=== PATIENT | female | born 1960 | race Caucasian/White ===

== ENCOUNTER 2019-02-07 06:00 | Outpatient (RCR) | payer OTHER, SELFPAY | END 2019-03-09 00:01 | LOC: SPT 06:00 | PROVIDERS: Family Provider Electrodiagnostic Medicine; Visit Provider Electrodiagnostic Medicine | DX: M25.512 Pain in left shoulder (principal); M75.42 Impingement syndrome of left shoulder; M75.102 Unspecified rotator cuff tear or rupture of left shoulder, not specified as traumatic | CPT/HCPCS: 97530 ==

== ENCOUNTER 2019-04-30 12:47 | Outpatient (CLI) | payer BC, SELFPAY ==
--- NOTE | 2019-04-30 13:10 | MM_ITS ---
WS: [id number] BILATERAL DIGITAL SCREENING MAMMOGRAPHY WITH CAD CLINICAL INFORMATION: SCREENING HISTORY: Screening mammogram. Left breast soreness COMPARISON: April 09, 2018 TECHNIQUE: Bilateral CC and MLO views. FINDINGS: The breasts are composed of heterogeneous fibroglandular density tissue, which can limit the detectio n of small underlying mass lesions. No suspicious mass, asymmetry, calcifications, or architectural d istortion. No evidence of malignancy. MM/[id number] IMPRESSION: BI-RADS: 1-Negative FOLLOW UP: 1 Year Follow-up Recommend return to annual screening mammography.
== END 2019-04-30 12:48 | disposition home or self-care (01) ==
LOC: RADSHAW 12:53
PROVIDERS: Family Provider Electrodiagnostic Medicine; PCP Electrodiagnostic Medicine; Visit Provider Obstetrics & Gynecology
DX: Z12.31 Encounter for screening mammogram for malignant neoplasm of breast (principal)
CPT/HCPCS: 77067

== ENCOUNTER 2020-08-11 07:59 | Outpatient (CLI) | payer BC, SELFPAY ==
--- NOTE | 2020-08-11 08:04 | MM_ITS ---
WS: [id number] SCREENING DIGITAL MAMMOGRAM WITH CAD HISTORY: SCREENING COMPARISON: 12/29/2019 and 04/09/2018 Bilateral CC and MLO views submitted. Computer aided detection analyzed. Breast composition: The breasts are heterogeneously dense, which may obscure small masses. No suspici ous masses, microcalcifications or architectural distortion. MM/[id number] IMPRESSION: BI-RADS: 1-Negative FOLLOW UP: 1 Year Follow-up
== END 2020-08-11 08:00 | disposition home or self-care (01) ==
LOC: RADSHAW 08:03
PROVIDERS: PCP Electrodiagnostic Medicine; Visit Provider Obstetrics & Gynecology
DX: Z12.31 Encounter for screening mammogram for malignant neoplasm of breast (principal)
CPT/HCPCS: 77067

== ENCOUNTER 2020-09-30 15:37 | Inpatient (IN) | payer BC, SELFPAY ==
[2020-09-30] VITALS (17 sets, daily range): BP systolic 93–149; BP diastolic 56–85; PULSE 90–162; RESP 17–34; TEMP 38; O2SAT 87–95; BMI 26.9
--- NOTE | 2020-09-30 17:25 | XRR_ITS ---
PROCEDURE INFORMATION: Exam: XR Chest Exam date and time: 09/30/2020 5:25 PM Age: 59 years old Clinical indication: Cough; Additional info: Hypoxia TECHNIQUE: Imaging protocol: XR of the chest. Views: 1 view. COMPARISON: CR Chest 1 [place] [id number] 10/20/2017 2:10 PM FINDINGS: Lungs: There is mild patchy opacification in the mid and inferior bilateral lungs. No dominant lung mass. Pleural spaces: Unremarkable. No pleural effusion. No pneumothorax. Heart/Mediastinum: Unremarkable. No cardiomegaly. Bones/joints: Unremarkable. XR/XR chest 1V portable [id number] IMPRESSION: There is mild patchy opacification in the bilateral lungs suggestive of pneumonia.Clinical correlation is advised.
--- NOTE | 2020-09-30 17:25 | ECG_ITS ---
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 Measurements Intervals [place] Rate: 155 P: GA: QRS: 22 QRSD: 82 T: 22 QT: 212 QTc: 340 Interpretive Statements ATRIAL FIBRILLATION WITH RAPID VENTRICULAR RESPONSE NONSPECIFIC ST & T-WAVE ABNORMALITY Compared to ECG 10/20/2017 17:08:52 T-wave abnormality now present Sinus bradycardia no longer present Electronically Signed On 10-01-2020 18:19:43 CDT by Antonina Jaime M.D. [id number] f
--- NOTE | 2020-09-30 17:59 | W.ED.COVID ---
HPI - COVID General: Chief Complaint: COVID symptoms Stated Complaint: COVID+ Time Seen by Provider: 09/30/20 17:59 Triage information: Has fever, cough or shortness of breath. No known COVID + exposure last 14 days COVID Results: SARS-CoV-2 RNA (RT-PCR) Pending 09/30/20 18:11 09/30/20 Course Vital Signs: Vital signs: Vital Signs Temperature 100.4 F H 09/30/20 17:05 Pulse Rate 90 09/30/20 17:05 Respiratory Rate 19 H 09/30/20 17:05 Blood Pressure 116/73 09/30/20 17:05 Pulse Oximetry 93 09/30/20 17:26 MDM - COVID Lab Data: Labs: Lab Results 09/30/20 Range/Units 18:07 Specimen Type Arterial Sample Site Radial, left ABG pH 7.51 H (7.35-7.45) ABG pCO2 35.1 (35-45) mmHg ABG pO2 64.2 L (80.0-100.0) mmH g ABG HCO3 27.6 H (22-26) mmol/L ABG Base Excess 4.6 H (-2.0-2.0) mmol/ L Reid Test Pos Hematocrit 45.3 (37-47) % O2 Delivery Device Nc O2 Liters/Min 3.0 % River Tester ID Adrielsameer COVID Results: SARS-CoV-2 RNA (RT-PCR) Pending 09/30/20 18:11 09/30/20 Discharge Plan Discharge Prescriptions: No Action azithromycin 250 mg Tablet See Rx Instructions .ROUTE .COMPLEX RF: 0 prednisone 5 mg Tablet See Rx Instructions .ROUTE .COMPLEX RF: 0 Plaquenil 200 mg Tablet 200 mg PO BID RF: 0 Coding Level of Care Code ED All Terrain Vehicle Racer for Chg Fwshruthi
--- NOTE | 2020-09-30 18:02 | PC.PHAR ---
PT STATES SHE JUST GOT MEDICATION TODAY FOR COVID. SHE DOESN'T KNOW THE DOSAGE OR DIRECTIONS AND HER PHARMACY IS CLOSED AT THIS TIME SO I CANNOT VERIFY THEM. SHE HAS PLAQUENIL, AZITHROMYCIN, AND PREDNISONE. PT STATES SHE TOOK ALL OF THESE TODAY.
[2020-09-30 18:17] LABS: ABG PCO2 35.1 mmHg (35-45); ABG PH Result 7.51 (7.35-7.45); Arterial Blood Gas Hematocrit 45.3 % (37-47); Base Excess ABG 4.6 mmol/L (-2.0-2.0); Blood Gas Allen Test Pos; Blood Gas Sample Type Arterial; HCO3 ABG 27.6 mmol/L (22-26); PO2 ABG 64.2 mmHg (80.0-100.0)
[2020-09-30 18:18] LABS: Blood Gas Operator Identificat BROMA; Blood Gas Sample Site Radial, left; Oxygen Device NC
[2020-09-30 18:28] LABS: Basophils % 0.2 %; Hematocrit 47.4 % (37.0-47.0); Hemoglobin 14.9 g/dL (11.5-15.3); Lymphocytes # 0.7 10^3/uL (0.8-4.8); Lymphocytes % 12.9 %; Mean Corpuscular HGB Conc 31.4 g/dL (30.0-36.0); Mean Corpuscular Hemoglobin 28.2 pg (28.0-34.0); Mean Corpuscular Volume 89.8 fL (81-99); Mean Platelet Volume 12.7 fL (7.4-10.4); Monocytes # 0.1 10^3/uL (0.2-0.9); Monocytes % 1.9 %; Neutrophils # 4.41 10^3/uL (1.8-7.7); Neutrophils % 84.6 %; Nucleated Red Blood Cells % 0 %; Platelet Count 147 10^3/cmm (130-400); Red Blood Count 5.28 10^6/uL (4.1-5.3); White Blood Count 5.2 10^3/uL (4.0-10.0)
[2020-09-30] MEDS: sodium chloride 0.9% 1,000 ML 999 ML IV (18:39)
[2020-09-30 18:52] LABS: D Dimer 0.59 ug/mIFEU (0-0.59)
[2020-09-30 18:56] LABS: Lactic Sepsis W/Reflex 1.3 mmol/L (0.5-2.2)
[2020-09-30 18:59] LABS: Alanine Aminotransferase 23 U/L (0-33); Albumin Level 4.1 g/dL (3.5-5.2); Alkaline Phosphatase 69 IU/L (35-105); Anion Gap 15.9 (5-19); Aspartate Amino Transferase 36 U/L (0-32); Blood Urea Nitrogen 12 mg/dL (6-20); C Reactive Protein 21.5 mg/L (0.0-4.9); Calcium 8.4 mg/dL (8.5-10.5); Carbon Dioxide 28 mmol/L (22-29); Chloride 94 mmol/L (98-107); Globulin 3.3 g/dL (1.3-4.6); Glomerular Filtration Rate 73.7 mL/min (90-130); Glucose 132 mg/dL (65-115); Lactate Dehydrogenase 408 U/L (135-214); Osmolality Calculated 280 mOsm/kg (285-295); Potassium 3.9 mmol/L (3.5-5.1); Sodium 134 mmol/L (136-145); Total Bilirubin 0.3 mg/dL (0.15-1.2); Total Protein 7.4 g/dL (6.6-8.7)
[2020-09-30 19:05] LABS: Procalcitonin 0.09 ng/mL (0-0.5)
[2020-09-30 19:26] LABS: Slide Review Slide Review Perform
--- NOTE | 2020-09-30 19:37 | W.ED.COVID ---
HPI - COVID General: Chief Complaint: COVID symptoms Stated Complaint: COVID+ Time Seen by Provider: 09/30/20 17:59 Source: patient and RN notes reviewed Mode of arrival: ambulatory Limitations: no limitations Triage information: Has fever, cough or shortness of breath. No known COVID + exposure last 14 days History of Present Illness: HPI Narrative: Patient is a 59-year-old female who has been feeling unwell for 7 days. Symptoms include cough, fever, body aches, generalized weakness. 5 days ago she did a home Covid test and she tested positive. She has had gradually declining functional status as well as worsening shortness of breath. She therefore presented to the emergency department to be evaluated for these. In the emergency department she was noted to be hypoxic with oxygen saturation about 87% on room air. MD complaint: known COVID positive Prior covid testing: yes, results known COVID 19 common symptoms: positive fever(s), chills, cough, dyspnea, fatigue, body aches, headache(s), nasal congestion, nausea and diarrhea; negative loss of sense of smell and/or taste, throat pain or vomiting COVID 19 other sytmptoms: positive requiring oxygen and lethargy; negative chest pressure, chest pain, pleuritic pain, respiratory distress, cyanosis, confusion, new neurological complaints or other concerning symptoms Onset (ago): day(s) (7) Severity: severe COVID Results: SARS-CoV-2 Antigen (Rapid) Positive (Negative) H 09/30/20 18:15 09/30/20 SARS-CoV-2 RNA (RT-PCR) Pending 09/30/20 18:11 09/30/20 Review of Systems General: Reports: 10 or more systems reviewed and unremarkable except in HPI and below Const: Reports: fever(s), chills, body aches and fatigue ENMT: Reports: nasal congestion; Denies: throat pain Card: Denies: chest pain Resp: Reports: dyspnea GI: Reports: nausea and diarrhea; Denies: vomiting Neuro: Reports: headache(s); Denies: confusion Physical Exam Const: COMMON NORMALS: no acute distress, average body habitus, patient oriented x3, no limitations, healthy appearing, alert and well nourished HENMT: COMMON NORMALS: normocephalic, atraumatic and moist oral mucous membranes HEAD & SCALP: normocephalic and atraumatic Neck/C-Spine: COMMON NORMALS: no meningeal signs and no JVD Resp: COMMON NORMALS: normal respiratory effort, No retractions, No use of accessory muscles, clear to auscultation bilaterally and percussion normal AUSCULTATION: clear to auscultation bilaterally PERCUSSION: percussion normal Cardio: COMMON NORMALS: no JVD, S1 normal heart sound present, S2 normal heart sound present, No gallops present (Cardio), No clicks present (Cardio), No murmurs present (Cardio), No rub (Cardio) and Peripheral pulses 2+ throughout RATE: tachycardic RHYTHM: abnormal rhythm irregularly irregular HEART SOUNDS: S1 normal heart sound present and S2 normal heart sound present PERIPHERAL PULSES: Peripheral pulses 2+ throughout GI: COMMON NORMALS: Normal to inspection, nondistended, normoactive bowel sounds present, Soft to palpation, non-tender, No hepatosplenomegaly present, no masses and no bruits PALPATION: Yes Soft to palpation and Yes No hepatosplenomegaly present Extremity: COMMON NORMALS: normal to inspection, full ROM, capillary refill normal, no calf tenderness and no pedal edema Neuro: COMMON NORMALS: patient oriented x3 SENSORIUM/ORIENTATION: Yes alert MENINGEAL SIGNS: Yes no meningeal signs Skin: COMMON NORMALS: no rashes or lesions noted, no wounds, turgor normal, no jaundice, no petechiae and no mottling GENERAL SKIN EXAM: no rashes or lesions noted and turgor normal Course Consultations: Consultation #1: Discussed the patient with Dr. Queen, hospitalist and he can accepted patient to his service. Time: 20:39 Vital Signs: Vital signs: Vital Signs Temperature 100.4 F H 09/30/20 17:05 Pulse Rate 117 H 09/30/20 22:15 Respiratory Rate 26 H 09/30/20 22:15 Blood Pressure 105/74 09/30/20 22:15 Pulse Oximetry 93 09/30/20 22:15 MDM - COVID MDM Narrative: Medical decision making narrative: 59-year-old female patient who has symptoms are started 7 days ago. Her symptoms are Covid-like symptoms and include fever, cough, body aches, diarrhea, nausea. She did a home test for Covid and she tested positive. In the emergency department today she was noted to be hypoxic, however of note she was in A. fib with RVR with a heart rate as high as 170. She required intravenous diltiazem as well as continuous infusion of diltiazem to get her heart rate control. Because of the A. fib with RVR requiring continuous infusion of diltiazem as well as the hypoxia from the COVID-19 she is admitted to the hospital for further evaluation and management. Medical Records: Attestation: I reviewed the patient's medical records. Lab Data: Attestation: I reviewed the patient's lab results. Labs: Lab Results 09/30/20 09/30/20 09/30/20 Range/Units 18:07 18:15 18:15 WBC 5.2 (4.0-10.0) 10^3/ uL RBC 5.28 (4.1-5.3) 10^6/u L Hgb 14.9 (11.5-15.3) g/dL Hct 47.4 H (37.0-47.0) % MCV 89.8 (81-99) fL MCH 28.2 (28.0-34.0) pg MCHC 31.4 (30.0-36.0) g/dL RDW 13.0 (12.1-15.1) % Plt Count 147 (130-400) 10^3/c mm MPV 12.7 H (7.4-10.4) fL Neut % (Auto) 84.6 % Lymph % (Auto) 12.9 % [place] % (Auto) 1.9 % Eos % (Auto) 0.0 % Baso % (Auto) 0.2 % Neut # (Auto) 4.41 (1.8-7.7) 10^3/u L Lymph # (Auto) 0.7 L (0.8-4.8) 10^3/u L [place] # (Auto) 0.1 L (0.2-0.9) 10^3/u L Eos # (Auto) 0.0 (0.0-0.8) 10^3/u L Baso # (Auto) 0.0 (0.0-0.1) 10^3/u L Nucleated RBC % (a uto) 0 % Nucleated RBCs # 0.0 /100WBC D-Dimer 0.59 (0-0.59) ug/mIFE U Specimen Type Arterial Sample Site Radial, left ABG pH 7.51 H (7.35-7.45) ABG pCO2 35.1 (35-45) mmHg ABG pO2 64.2 L (80.0-100.0) mmH g ABG HCO3 27.6 H (22-26) mmol/L ABG Base Excess 4.6 H (-2.0-2.0) mmol/ L Reid Test Pos Hematocrit 45.3 (37-47) % O2 Delivery Device Nc O2 Liters/Min 3.0 % Ambulatory Technologist ID Broma Sodium (136-145) mmol/L Potassium (3.5-5.1) mmol/L Chloride (98-107) mmol/L Carbon Dioxide (22-29) mmol/L Anion Gap (5-19) BUN (6-20) mg/dL Creatinine (0.5-0.9) mg/dL GFR Calculation (90-130) mL/min Glucose (65-115) mg/dL Calculated Osmolal ity (285-295) mOsm/k g Lactic Acid (0.5-2.2) mmol/L Calcium (8.5-10.5) mg/dL Total Bilirubin (0.15-1.2) mg/dL AST (0-32) U/L ALT (0-33) U/L Alkaline Phosphata se (35-105) IU/L Lactate Dehydrogen ase (135-214) U/L C-Reactive Protein (0.0-4.9) mg/L Total Protein (6.6-8.7) g/dL Albumin (3.5-5.2) g/dL Globulin (1.3-4.6) g/dL Procalcitonin (0-0.5) ng/mL SARS-CoV-2 Ag (Rap id) (Negative) 09/30/20 09/30/20 09/30/20 Range/Units 18:15 18:15 18:15 WBC (4.0-10.0) 10^3/ uL RBC (4.1-5.3) 10^6/u L Hgb (11.5-15.3) g/dL Hct (37.0-47.0) % MCV (81-99) fL MCH (28.0-34.0) pg MCHC (30.0-36.0) g/dL RDW (12.1-15.1) % Plt Count (130-400) 10^3/c mm MPV (7.4-10.4) fL Neut % (Auto) % Lymph % (Auto) % [place] % (Auto) % Eos % (Auto) % Baso % (Auto) % Neut # (Auto) (1.8-7.7) 10^3/u L Lymph # (Auto) (0.8-4.8) 10^3/u L [place] # (Auto) (0.2-0.9) 10^3/u L Eos # (Auto) (0.0-0.8) 10^3/u L Baso # (Auto) (0.0-0.1) 10^3/u L Nucleated RBC % (a uto) % Nucleated RBCs # /100WBC D-Dimer (0-0.59) ug/mIFE U Specimen Type Sample Site ABG pH (7.35-7.45) ABG pCO2 (35-45) mmHg ABG pO2 (80.0-100.0) mmH g ABG HCO3 (22-26) mmol/L ABG Base Excess (-2.0-2.0) mmol/ L Reid Test Hematocrit (37-47) % O2 Delivery Device O2 Liters/Min % Ambulatory Technologist ID Sodium 134 L (136-145) mmol/L Potassium 3.9 (3.5-5.1) mmol/L Chloride 94 L (98-107) mmol/L Carbon Dioxide 28 (22-29) mmol/L Anion Gap 15.9 (5-19) BUN 12 (6-20) mg/dL Creatinine 0.8 (0.5-0.9) mg/dL GFR Calculation 73.7 L (90-130) mL/min Glucose 132 H (65-115) mg/dL Calculated Osmolal ity 280 L (285-295) mOsm/k g Lactic Acid 1.3 (0.5-2.2) mmol/L Calcium 8.4 L (8.5-10.5) mg/dL Total Bilirubin 0.3 (0.15-1.2) mg/dL AST 36 H (0-32) U/L ALT 23 (0-33) U/L Alkaline Phosphata se 69 (35-105) IU/L Lactate Dehydrogen ase 408 H (135-214) U/L C-Reactive Protein 21.5 H (0.0-4.9) mg/L Total Protein 7.4 (6.6-8.7) g/dL Albumin 4.1 (3.5-5.2) g/dL Globulin 3.3 (1.3-4.6) g/dL Procalcitonin 0.09 (0-0.5) ng/mL SARS-CoV-2 Ag (Rap id) Positive H (Negative) Imaging Data: CXR: Attestation: I personally reviewed and interpreted this imaging study as follows: Radiologist's impression: [address] [id number] ReportSigned Patient: Zoie Arnold AUnit #: [id number]: 1960cct#:[id number]/Sex: 59 / FADM Date: 09/30/20Loc: ERRoom/Bed:Attending Dr: Ordering Provider/Ordering MD: Domenic Johnson DO Date of Service: 09/30/20 Procedure(s): XR chest 1V portable [id number] Accession Number(s): [id number] Report Number: [id number] PROCEDURE INFORMATION: Exam: XR Chest Exam date and time: 09/30/2020 5:25 PM Age: 59 years old Clinical indication: Cough; Additional info: Hypoxia TECHNIQUE: Imaging protocol: XR of the chest. Views: 1 view. COMPARISON: CR Chest 1 [place] [id number] 10/20/2017 2:10 PM FINDINGS: Lungs: There is mild patchy opacification in the mid and inferior bilateral lungs. No dominant lung mass. Pleural spaces: Unremarkable. No pleural effusion. No pneumothorax. Heart/Mediastinum: Unremarkable. No cardiomegaly. Bones/joints: Unremarkable. XR/XR chest 1V portable [id number] IMPRESSION: There is mild patchy opacification in the bilateral lungs suggestive of pneumonia.Clinical correlation is advised. Dictated By:Carrie Mcihaud MDSigned By:Carrie Michaudigned Date/Time:09/30/201934DD/ 32 EKG Data: EKG 1: Attestation: I personally reviewed and interpreted this EKG as follows: EKG interpretation date: 09/30/20 EKG interpretation time: 18:32 Prior EKG tracings: not available for review Interpretation: Atrial fibrillation with rapid ventricular response. Heart rate [address] changes COVID Results: SARS-CoV-2 Antigen (Rapid) Positive (Negative) H 09/30/20 18:15 09/30/20 SARS-CoV-2 RNA (RT-PCR) Pending 09/30/20 18:11 09/30/20 Discharge Plan Discharge Patient Disposition: Admitted As Inpatient Admit Provider: Mari Queen Clinical Impression: Atrial fibrillation with rapid ventricular response, Pneumonia due to COVID-19 virus, Hypoxia Condition: Stable Coding Level of Care Code ED Montessori Lead Teacher for Michele Mathis
[2020-09-30 20:31] LABS: SARS Covid-2 Antigen Positive (Negative)
--- NOTE | 2020-09-30 20:51 | PM.HP ---
Providers/Chief Complaint Primary Care Provider: Reji Woody DO Chief Complaint: COVID+ History of Present Illness 59-year-old the female presented to the hospital respiratory distress. This was associated with generalized weakness, nausea, fever, chills, and palpitations. Initial vital signs showed a temperature of a 100.4?, Blood pressure 116/73, heart rate of 90, respiratory rate of 19 with oxygen saturation of 87% on room air. Laboratory workup on arrival showed a WBC 5.2, hemoglobin of 14.9, hematocrit of 47.4 and a platelet count of 147. D-dimer of 0.59. Arterial blood gases showed a pH of 7.51, pCO2 35.1, PO2 of 64.2 and a bicarb 27.6. Sodium 134, potassium 3.9, chloride 94, bicarb 28, BUN 12 and creatinine of 0.8. Lactic acid of 1.3. AST of 36, ALT of 23, alkaline phosphatase of 69. LDH was 4 8. C-reactive protein of 21.5. Interleukin 6 was checked however pending. Chest x-ray showed mild patchy opacifications in bilateral lung suggestive of pneumonia. Patient was started on remdesivir 200 mg IV x 1. While in emergency room patient was found to have atrial fibrillation with rapid ventricular response. No prior history of AFib was noted. Patient was started on Cardizem drip. Review of Systems General: Reports: 10 or more systems reviewed and unremarkable except in HPI and below Medications/Allergies Home Medications Medication Instructions Recorded Confirmed Last Taken Type azithromycin See Rx Instructions .ROUTE .COMPLEX 09/30/20 09/30/20 09/30/20 History hydroxychloroquine [Plaquenil] 200 mg PO BID 09/30/20 09/30/20 09/30/20 History prednisone See Rx Instructions .ROUTE .COMPLEX 09/30/20 09/30/20 09/30/20 History Allergies Allergy/AdvReac Type Severity Reaction Status Date / Time No Known Allergies Allergy Verified 09/30/20 17:05 Vitals/I&O/Wt Last Vital Signs Temp 100.4 F H 09/30/20 17:05 Pulse 135 H 09/30/20 20:30 Resp 33 H 09/30/20 20:30 BP 112/65 09/30/20 20:30 Pulse Ox 93 09/30/20 20:30 09/30/20 09/30/2009/30/21 06:59 14:59 22:59 Intake Total 3.333 / 3.333 Balance 3.333 / 3.333 Weight last 48 hrs Weight 80.286 kg Physical Exam Narrative: EXAM NARRATIVE: General ; alert, awake oriented x 3 HEENT : EOMI CVS : Irregularly irregular Chest : CTABL Abd: soft, NT, ND Ext; No edema Data : 10/01/20 03:42 10/01/20 03:42 Micro: Microbiology 09/30/20 19:10 Blood Culture - Preliminary Blood SPECIMEN COLLECTED 09/30/20 18:15 Blood Culture - Preliminary Blood SPECIMEN COLLECTED A&P Assessment and plan (1) Pneumonia due to COVID-19 virus: Started on Decadron 6 mg IV daily times 10 days Remdesivir 200Mg x1 - 100 mg IV daily x4 days Procalcitonin, D-dimer negative Interleukin 6 ordered-pending Supplemental oxygen as needed COVID-19 labs in a.m. Contact/droplet precautions Tylenol p.r.n. for fever Avoid NSAIDs Status: Acute (2) Atrial fibrillation with rapid ventricular response: Newly diagnosed Continue Cardizem drip titrate to keep heart rate less than 110 Lovenox 1 milligram/kg b.i.d. Once heart rate improves will obtain echocardiogram Monitor in cardiac telemetry Avoid Caffeine TSH in a.m. Status: Acute (3) DVT prophylaxis: Lovenox 80 mg subQ b.i.d. Status: Acute Attestations Medical Necessity Statement*: Patient required admission for management of COVID-19 pneumonia and atrial fibrillation with rapid ventricular response requiring IV Cardizem. Anticipate over 2 midnights stay in hospital for evaluation and treat Time Spent in Patient Care: Greater than 35 minutes (>than 50% of time spent in counselling and/or direct pt care on unit). Coding Level of Care Code Acute Stereo Operator for Michele Fwd Diagnoses Pneumonia due to COVID-19 virus U07.1; J12.82 Atrial fibrillation with rapid ventricular response I48.91 DVT prophylaxis Z29.9
--- NOTE | 2020-09-30 21:30 | P.HP_ITS ---
Providers/Chief Complaint Admitting Physician: Mari Queen Primary Care Provider: Reji Woody DO Chief Complaint: COVID+ History of Present Illness Zoie Arnold is a 59 year old female Medications/Allergies Home Medications Medication Instructions Recorded Confirmed Last Taken Type azithromycin See Rx Instructions .ROUTE .COMPLEX 09/30/20 09/30/20 09/30/20 History hydroxychloroquine [Plaquenil] 200 mg PO BID 09/30/20 09/30/20 09/30/20 History prednisone See Rx Instructions .ROUTE .COMPLEX 09/30/20 09/30/20 09/30/20 History Allergies Allergy/AdvReac Type Severity Reaction Status Date / Time No Known Allergies Allergy Verified 09/30/20 17:05 Vitals/I&O/Wt Last Vital Signs Temp 100.4 F H 09/30/20 17:05 Pulse 135 H 09/30/20 20:30 Resp 33 H 09/30/20 20:30 BP 112/65 09/30/20 20:30 Pulse Ox 93 09/30/20 20:30 09/30/20 09/30/20 09/30/20 06:59 14:59 22:59 Intake Total 3.333 / 3.333 Balance 3.333 / 3.333 Weight last 48 hrs Weight 80.286 kg Data : 09/30/20 18:15 09/30/20 18:15 Micro: Microbiology 09/30/20 19:10 Blood Culture - Preliminary Blood SPECIMEN COLLECTED 09/30/20 18:15 Blood Culture - Preliminary Blood SPECIMEN COLLECTED Coding Level of Care Code Acute Voyage Management System Operator for Michele Mathis
[2020-09-30] MEDS: ondansetron 2 mg/ML SDV 2 mL 4 MG IVP (21:51)
[2020-09-30] MEDS: remdesivir 200 MG in sodium chloride 0.9% (100 ml) 100 ML 100 MG IV (22:10)
[2020-10-01] VITALS (39 sets, daily range): BP systolic 93–131; BP diastolic 44–85; PULSE 70–140; RESP 18–24; TEMP 36.6–37.7; O2SAT 87–95
[2020-10-01] MEDS: dexamethasone 4 mg/mL INJ 6 MG IVP ×2 (00:21→20:53)
--- NOTE | 2020-10-01 00:33 | PC.NURSE ---
Patient heart rate 80 to 90s. Decreased cardizem to 5ml/hr.
[2020-10-01 03:51] LABS: Basophils % 0.2 %; Hematocrit 45.3 % (37.0-47.0); Hemoglobin 14.2 g/dL (11.5-15.3); Lymphocytes # 1.1 10^3/uL (0.8-4.8); Lymphocytes % 17.1 %; Mean Corpuscular HGB Conc 31.3 g/dL (30.0-36.0); Mean Corpuscular Hemoglobin 27.8 pg (28.0-34.0); Mean Corpuscular Volume 88.8 fL (81-99); Mean Platelet Volume 12.1 fL (7.4-10.4); Monocytes # 0.2 10^3/uL (0.2-0.9); Monocytes % 2.5 %; Neutrophils # 5.07 10^3/uL (1.8-7.7); Neutrophils % 79.7 %; Nucleated Red Blood Cells % 0 %; Platelet Count 147 10^3/cmm (130-400); White Blood Count 6.4 10^3/uL (4.0-10.0)
[2020-10-01 04:12] LABS: D Dimer 0.81 ug/mIFEU (0-0.59)
[2020-10-01 04:22] LABS: Alanine Aminotransferase 20 U/L (0-33); Albumin Level 3.6 g/dL (3.5-5.2); Alkaline Phosphatase 63 IU/L (35-105); Anion Gap 12.9 (5-19); Aspartate Amino Transferase 28 U/L (0-32); Blood Urea Nitrogen 10 mg/dL (6-20); C Reactive Protein 19.5 mg/L (0.0-4.9); Carbon Dioxide 26 mmol/L (22-29); Chloride 99 mmol/L (98-107); Globulin 2.8 g/dL (1.3-4.6); Glomerular Filtration Rate 102.7 mL/min (90-130); Glucose 113 mg/dL (65-115); Osmolality Calculated 278 mOsm/kg (285-295); Potassium 3.9 mmol/L (3.5-5.1); Sodium 134 mmol/L (136-145); Total Bilirubin 0.3 mg/dL (0.15-1.2); Total Protein 6.4 g/dL (6.6-8.7)
[2020-10-01 04:30] LABS: Procalcitonin 0.08 ng/mL (0-0.5)
[2020-10-01 04:42] LABS: Ferritin 398 ng/mL (15-150)
--- NOTE | 2020-10-01 04:53 | PC.NURSE ---
Heart rate upper 90s to 110s. Heart does increase to 120s with exertion. Increased Cardizem drip to 10ml/hr
[2020-10-01] MEDS: dilTIAZem 30 mg Tablet PO ×3 (08:55→20:53)
[2020-10-01] MEDS: pantoprazole DR 40 mg Tablet PO (08:55)
[2020-10-01] MEDS: remdesivir 100 MG in sodium chloride 0.9% (100 ml) 100 ML IV (17:41)
--- NOTE | 2020-10-01 19:32 | PC.NURSE ---
Received bedside report from AUDRA Chu. Patient resting in bed watching tv. Patient report improved stomach upset. Discussed Cardizem dosing. Patient verbalized understanding.
--- NOTE | 2020-10-01 22:22 | PM.PN ---
Subjective Subjective: Interval history: She is doing a little bit better. Still having diarrhea. No vomiting. Comfortable at current oxygen level. States discussed about starting aspirin for prophylaxis from CVA from atrial fibrillation. Agreeable to start. Understands risk of bleeding. Vitals/I&O/Wt Last Vital Signs Temp 98.2 F 10/01/20 19:25 Pulse 78 10/01/20 22:01 Resp 18 10/01/20 22:01 BP 103/69 10/01/20 19:25 Pulse Ox 93 10/01/20 22:01 10/01/20 10/01/20 10/01/20 06:59 14:59 22:59 Intake Total 756.334 / 1759.667 662 / 662 757.167 / 1419.167 Output Total 1100 / 1100 400 / 1500 Balance 756.334 / 1759.667 -438 / -438 357.167 / -80.833 Weight last 48 hrs Weight 78.834 kg Weight 80.286 kg Data : 10/01/20 03:42 10/01/20 03:42 Micro: Microbiology 09/30/20 19:10 Blood Culture - Preliminary Blood NEGATIVE TO DATE 09/30/20 18:15 Blood Culture - Preliminary Blood NEGATIVE TO DATE A&P Assessment and plan (1) Pneumonia due to COVID-19 virus: Severe COVID-19 pneumonia, continue remdesivir, Decadron. Albuterol as needed. We will add Tessalon Perles. Continue oxygen support, wean off as tolerating. Lovenox VTE prophylaxis. Status: Acute (2) Atrial fibrillation with rapid ventricular response: Started on 30 mg every 6 Cardizem this morning. Still requiring 5 mg/h Cardizem drip. Increase oral Cardizem to 60 mg 3 times daily. Monitor blood pressure. Magnesium checked and is good. Potassium acceptable at 3.9. Suspect A. fib with RVR related to acute viral illness, severe COVID-19, hypoxia. TSH Once heart rate improves will obtain echocardiogram Monitor in cardiac telemetry Status: Acute (3) DVT prophylaxis: Lovenox Status: Acute Attestations Medical Necessity Statement*: Continue admission for assessment management of severe COVID-19, A. fib with RVR. Coding Level of Care Code Acute [employer] Science Teacher for naeem Mathis Diagnoses Pneumonia due to COVID-19 virus U07.1; J12.82 Atrial fibrillation with rapid ventricular response I48.91 DVT prophylaxis Z29.9
[2020-10-01] MEDS: aspirin 81 mg EC Tablet PO (23:04)
[2020-10-01] MEDS: trazodone 50 mg Tablet 25 MG PO (23:04)
[2020-10-01] MEDS: enoxaparin 40 mg/0.4 mL Syringe SUBCUT (23:04)
[2020-10-02] VITALS (9 sets, daily range): BP systolic 104–115; BP diastolic 59–72; PULSE 75–113; RESP 16–24; TEMP 36.4–36.7; O2SAT 90–95
[2020-10-02] MEDS: dilTIAZem 30 mg Tablet 60 MG PO ×3 (04:57→21:25)
[2020-10-02] MEDS: benzonatate 100 mg Capsule PO ×2 (04:57→17:54)
[2020-10-02 05:18] LABS: Basophils % 0.2 %; Hematocrit 47.6 % (37.0-47.0); Lymphocytes # 1.4 10^3/uL (0.8-4.8); Lymphocytes % 22.3 %; Mean Corpuscular HGB Conc 31.5 g/dL (30.0-36.0); Mean Corpuscular Hemoglobin 28.3 pg (28.0-34.0); Mean Corpuscular Volume 89.8 fL (81-99); Mean Platelet Volume 12.1 fL (7.4-10.4); Monocytes # 0.3 10^3/uL (0.2-0.9); Monocytes % 4.4 %; Neutrophils # 4.58 10^3/uL (1.8-7.7); Neutrophils % 72.6 %; Nucleated Red Blood Cells % 0 %; Platelet Count 162 10^3/cmm (130-400); Red Cell Distribution Width 13.1 % (12.1-15.1); White Blood Count 6.3 10^3/uL (4.0-10.0)
[2020-10-02 05:33] LABS: D Dimer 0.65 ug/mIFEU (0-0.59)
[2020-10-02 05:42] LABS: Alanine Aminotransferase 21 U/L (0-33); Albumin Level 3.3 g/dL (3.5-5.2); Alkaline Phosphatase 60 IU/L (35-105); Anion Gap 14.2 (5-19); Aspartate Amino Transferase 27 U/L (0-32); Blood Urea Nitrogen 16 mg/dL (6-20); Calcium 8.1 mg/dL (8.5-10.5); Carbon Dioxide 27 mmol/L (22-29); Chloride 101 mmol/L (98-107); Glomerular Filtration Rate 102.7 mL/min (90-130); Glucose 137 mg/dL (65-115); Magnesium 2.2 mg/dL (1.7-2.3); Osmolality Calculated 289 mOsm/kg (285-295); Potassium 4.2 mmol/L (3.5-5.1); Sodium 138 mmol/L (136-145); Total Bilirubin 0.4 mg/dL (0.15-1.2); Total Protein 6.3 g/dL (6.6-8.7)
[2020-10-02 06:59] LABS: C Reactive Protein 11.8 mg/L (0.0-4.9)
[2020-10-02 08:10] LABS: Thyroid Stimulating Hormone 0.84 uIU/mL (0.27-4.20)
[2020-10-02] MEDS: aspirin 81 mg EC Tablet PO (09:57)
[2020-10-02] MEDS: pantoprazole DR 40 mg Tablet PO (09:57)
--- NOTE | 2020-10-02 11:01 | P.PN_ITS ---
Subjective Subjective: Interval history: Still coughing and having discomfort under left breast but not present with deep breathing on exam. appetite is still low. Trouble sleeping. Not getting OOB. Vitals/I&O/Wt Last Vital Signs Temp 97.9 F 10/02/20 08:00 Pulse 75 10/02/20 09:10 Resp 16 10/02/20 09:10 BP 110/66 10/02/20 08:00 Pulse Ox 92 10/02/20 09:10 10/01/20 10/02/20 10/02/20 22:59 06:59 14:59 Intake Total 757.167 / 1419.167 165.75 / 1584.917 120 / 120 Output Total 400 / 1500 Balance 357.167 / -80.833 165.75 / 84.917 120 / 120 Weight last 48 hrs Weight 78.834 kg Weight 80.286 kg Physical Exam Narrative: EXAM NARRATIVE: alert oriented. NAD. Appears stated age. H: irreg irreg. No murmur L: clear with scattered rhonchi A: soft NT/ND normoactive BS E: no edema Data : 10/02/20 05:00 10/02/20 05:00 Micro: Microbiology 09/30/20 19:10 Blood Culture - Preliminary Blood NEGATIVE TO DATE 09/30/20 18:15 Blood Culture - Preliminary Blood NEGATIVE TO DATE A&P Assessment and plan (1) Pneumonia due to COVID-19 virus: 3 more days of remdesivir and decadron increased trazadone to 50 mg for sleep. Status: Acute (2) Hypoxia: on 3 L NC. Desats easily while talking to 87% Status: Acute (3) DVT prophylaxis: lovenox Status: Acute (4) Atrial fibrillation with rapid ventricular response: off cardizem gtt today and given cardizem 30 mg q8 hr. Hr around 80 Status: Acute Attestations Medical Necessity Statement*: active COVID 19 requiring IV medication and oxgen and new afib just off continuous cardizem drip requiring frequent monitoring. Coding Level of Care Code Acute Sybase Developer for g Fwd Diagnoses Pneumonia due to COVID-19 virus U07.1; J12.82 Hypoxia R09.02 DVT prophylaxis Z29.9 Atrial fibrillation with rapid ventricular response I48.91
[2020-10-02] MEDS: remdesivir 100 MG in sodium chloride 0.9% (100 ml) 100 ML IV (17:42)
[2020-10-02] MEDS: ondansetron 2 mg/ML SDV 2 mL 4 MG IVP (17:54)
[2020-10-02] MEDS: enoxaparin 40 mg/0.4 mL Syringe SUBCUT (21:25)
[2020-10-02] MEDS: dexamethasone 4 mg/mL INJ 6 MG IVP (21:25)
[2020-10-02] MEDS: trazodone 50 mg Tablet PO (21:26)
[2020-10-03] VITALS (12 sets, daily range): BP systolic 102–119; BP diastolic 63–81; PULSE 62–102; RESP 17–22; TEMP 36.6–36.9; O2SAT 90–95
[2020-10-03 05:25] LABS: Basophils % 0.1 %; Hematocrit 47.4 % (37.0-47.0); Hemoglobin 15.1 g/dL (11.5-15.3); Lymphocytes # 1.4 10^3/uL (0.8-4.8); Mean Corpuscular HGB Conc 31.9 g/dL (30.0-36.0); Mean Corpuscular Hemoglobin 28.4 pg (28.0-34.0); Mean Corpuscular Volume 89.3 fL (81-99); Mean Platelet Volume 12.5 fL (7.4-10.4); Monocytes # 0.4 10^3/uL (0.2-0.9); Monocytes % 5.6 %; Neutrophils # 5.17 10^3/uL (1.8-7.7); Neutrophils % 73.9 %; Nucleated Red Blood Cells % 0 %; Platelet Count 196 10^3/cmm (130-400); Red Blood Count 5.31 10^6/uL (4.1-5.3); Red Cell Distribution Width 12.9 % (12.1-15.1)
[2020-10-03 05:36] LABS: Alanine Aminotransferase 45 U/L (0-33); Albumin Level 3.3 g/dL (3.5-5.2); Alkaline Phosphatase 64 IU/L (35-105); Anion Gap 15.2 (5-19); Aspartate Amino Transferase 39 U/L (0-32); Blood Urea Nitrogen 17 mg/dL (6-20); Calcium 8.2 mg/dL (8.5-10.5); Carbon Dioxide 27 mmol/L (22-29); Chloride 102 mmol/L (98-107); Globulin 2.9 g/dL (1.3-4.6); Glomerular Filtration Rate 102.7 mL/min (90-130); Glucose 139 mg/dL (65-115); Magnesium 2.2 mg/dL (1.7-2.3); Osmolality Calculated 294 mOsm/kg (285-295); Potassium 4.2 mmol/L (3.5-5.1); Sodium 140 mmol/L (136-145); Total Bilirubin 0.4 mg/dL (0.15-1.2); Total Protein 6.2 g/dL (6.6-8.7)
[2020-10-03] MEDS: benzonatate 100 mg Capsule PO (05:59)
[2020-10-03] MEDS: dilTIAZem 30 mg Tablet 60 MG PO (05:59)
--- NOTE | 2020-10-03 06:52 | PC.NURSE ---
Dr. Boyce notified that patient's heart rate had been well controlled through the night until she got up and moved around this morning. Patient's heart rate went up to 120s-130s. Patient was laid back down in bed 10 minutes ago with no improvement. Awaiting orders.
[2020-10-03 08:29] LABS: Quest SARS-CoV-2 RNA DETECTED (NOT DETECTED)
[2020-10-03] MEDS: aspirin 81 mg EC Tablet PO (09:13)
--- NOTE | 2020-10-03 09:53 | P.PN_ITS ---
Subjective Subjective: Interval history: Got out of bed. Said she was told to go back due to HR 150? She feels a bit better. Had a coughing spell and then felt like she was breathing deeper. Vitals/I&O/Wt Last Vital Signs Temp 97.9 F 10/03/20 07:43 Pulse 83 10/03/20 07:43 Resp 19 H 10/03/20 07:43 BP 102/73 10/03/20 07:43 Pulse Ox 91 10/03/20 07:43 10/02/20 10/03/20 10/03/20 22:59 06:59 14:59 Intake Total 320 / 560 200 / 760 Output Total 1000 / 1000 Balance -680 / -440 200 / -240 Physical Exam Narrative: EXAM NARRATIVE: alert oriented. NAD. Appears stated age. H: irreg irreg. No murmur L: scattered rhonchi diminished BS A: soft NT/ND normoactive BS E: no edema Data : 10/03/20 04:47 10/03/20 04:47 Micro: Microbiology 09/30/20 18:15 Blood Culture - Preliminary Blood A&P Assessment and plan (1) Pneumonia due to COVID-19 virus: 2 more days of remdesivir and decadron I demonstrated and then had her demonstrate proper use of IS with holding breath as long as possible. increased trazadone to 50 mg for sleep. Status: Acute (2) Hypoxia: on 3 - 4 L NC. Desats easily while talking to 87% Status: Acute (3) DVT prophylaxis: lovenox Status: Acute (4) Atrial fibrillation with rapid ventricular response: On cardizem 60 mg q8 hr. Will increase to 60 mg qhr. Will consider digoxin next. Status: Acute Attestations Medical Necessity Statement*: Pt remains hypoxic and tachycardiac and receiving remdesiver and decadron IV. Will require another 48 hr atleast of hospital level care. Coding Level of Care Code Acute Tennis Ball Coverer Hand for Michele Fwshruthi Diagnoses Pneumonia due to COVID-19 virus U07.1; J12.82 Hypoxia R09.02 DVT prophylaxis Z29.9 Atrial fibrillation with rapid ventricular response I48.91
[2020-10-03] MEDS: dilTIAZem 60 mg Tablet PO ×2 (12:38→18:30)
[2020-10-03] MEDS: remdesivir 100 MG in sodium chloride 0.9% (100 ml) 100 ML IV (18:30)
--- NOTE | 2020-10-03 19:37 | PC.NURSE ---
Patient did not have right wrist IV upon my arrival on shift.
[2020-10-03] MEDS: trazodone 50 mg Tablet PO (21:38)
[2020-10-03] MEDS: dexamethasone 4 mg/mL INJ 6 MG IVP (21:38)
[2020-10-03] MEDS: enoxaparin 40 mg/0.4 mL Syringe SUBCUT (21:38)
[2020-10-04] VITALS (12 sets, daily range): BP systolic 100–145; BP diastolic 56–73; PULSE 72–95; RESP 15–24; TEMP 36.6–36.8; O2SAT 90–96
[2020-10-04] MEDS: dilTIAZem 60 mg Tablet PO ×2 (00:44→05:27)
[2020-10-04] MEDS: aspirin 81 mg EC Tablet PO (10:38)
[2020-10-04] MEDS: dilTIAZem ER (24HR) 240 mg Capsule PO (10:38)
--- NOTE | 2020-10-04 13:27 | P.PN_ITS ---
Subjective Subjective: Interval history: Again dropping sats with activity and told to get in bed prone. Coughing and much nasal congestion. Vitals/I&O/Wt Last Vital Signs Temp 97.9 F 10/04/20 12:00 Pulse 95 10/04/20 12:00 Resp 19 H 10/04/20 12:00 BP 112/57 10/04/20 12:00 Pulse Ox 90 10/04/20 12:00 10/03/20 10/04/20 10/04/20 22:59 06:59 14:59 Intake Total 510 / 1230 100 / 1330 600 / 600 Output Total 650 / 650 Balance 510 / 1230 -550 / 680 600 / 600 Physical Exam Narrative: EXAM NARRATIVE: alert oriented. NAD. Appears stated age. H: irreg irreg. No murmur L: less rhonchi diminished BS A: soft NT/ND normoactive BS E: no edema Data : 10/03/20 04:47 10/03/20 04:47 Micro: Microbiology 09/30/20 18:15 Blood Culture - Preliminary Blood Bacillus sp not b. anthracis A&P Assessment and plan (1) Pneumonia due to COVID-19 virus: 1 more days of remdesivir and decadron Encouraged to increase activity. Increase oxygen supplementation to meet needs while active. Prone when sleeping/resting only change positions frequently. Will try small dose roxanol to assist with air hunger/breathlessness and anxiety Status: Acute (2) Hypoxia: on 3 - 4 L NC. Desats easily while talking 86% and per RN to low 80* high 70* with activity. Status: Acute (3) DVT prophylaxis: lovenox - needs full dose due to afib. Status: Acute (4) Atrial fibrillation with rapid ventricular response: Changed to Cardizem ER. Add digoxin for rate control echo when HR better controlled. if unable to control HR will consult cards. Status: Acute Attestations Medical Necessity Statement*: Pt severely hypoxic unable to maintain sats with activity and not able to be managed elsewhere. Maintain hospitalizlation due to tachycardia not responding to meds and hypoxia not improving. Coding Level of Care Code Acute Institutional Aide for g Fwd Diagnoses Pneumonia due to COVID-19 virus U07.1; J12.82 Hypoxia R09.02 DVT prophylaxis Z29.9 Atrial fibrillation with rapid ventricular response I48.91
[2020-10-04] MEDS: digoxin 250 mcg/ml INJ 2 mL 500 MCG IVP ×2 (13:42→21:57)
[2020-10-04] MEDS: morphine 10 mg/0.5 mL oral liq UD 5 MG PO ×2 (15:41→21:55)
[2020-10-04] MEDS: remdesivir 100 MG in sodium chloride 0.9% (100 ml) 100 ML IV (17:36)
[2020-10-04] MEDS: trazodone 50 mg Tablet PO (21:57)
[2020-10-04] MEDS: dexamethasone 4 mg/mL INJ 6 MG IVP (21:57)
[2020-10-04] MEDS: enoxaparin 40 mg/0.4 mL Syringe SUBCUT (21:57)
[2020-10-05] VITALS (16 sets, daily range): BP systolic 100–125; BP diastolic 52–85; PULSE 55–118; RESP 16–21; TEMP 36.6–37.1; O2SAT 88–96
[2020-10-05] MEDS: digoxin 250 mcg Tablet PO (09:48)
[2020-10-05] MEDS: aspirin 81 mg EC Tablet PO (09:48)
[2020-10-05] MEDS: dilTIAZem ER (24HR) 240 mg Capsule PO (10:30)
--- NOTE | 2020-10-05 16:49 | P.PN_ITS ---
Subjective Subjective: Interval history: improved spirits today with roommate on COVID unit. actually smiling. [place] better this morning after a few doses of roxanol. remains concerned with her oxgyen level. Seen using coloring book sent in by daughter. Vitals/I&O/Wt Last Vital Signs Temp 98.4 F 10/05/20 16:00 Pulse 77 10/05/20 16:04 Resp 18 10/05/20 16:04 BP 119/71 10/05/20 16:00 Pulse Ox 91 10/05/20 16:04 10/05/20 10/05/20 10/05/20 06:59 14:59 22:59 Intake Total 270 / 970 720 / 720 Balance 270 / 970 720 / 720 Physical Exam Narrative: EXAM NARRATIVE: alert oriented. NAD when enter room. visibly upset when oxygen alarms. Constantty trying to look at monitor. H: REG rate (CONVERTED TO SINUS) No murmur L: less rhonchi diminished BS; IMPROVED AERATION A: soft NT/ND normoactive BS E: no edema Data : 10/03/20 04:47 10/03/20 04:47 A&P Assessment and plan (1) Pneumonia due to COVID-19 virus: Completed remdesivir Continue decadron Encouraged to increase activity. Reviewed with RT who was in room. When using IS and talking with me pt desated to about 86-89 %. Increased oxygen. Explained that oxygen needs ok to be in flux and to use a venti mask or other to give her nose a break. Increase oxygen supplementation to meet needs while active. Prone when sleeping/resting only change positions frequently. Pt and RN's unclear why roxanol. I wrote nursing communication/message. Explained that it is scheduled NOT prn. It helped her air hunger/breathlessness and anxiety Status: Acute (2) Hypoxia: Requiring about 4-8 L of oxygen. Not desating as much today. Status: Acute (3) DVT prophylaxis: lovenox - remains on full dose, due to afib. Status: Acute (4) Atrial fibrillation with rapid ventricular response: CONVERTED TO SINUS!! Continue Cardizem ER. Will stop digoxin echo when HR better controlled. if unable to control HR will consult cards. Status: Acute Attestations Medical Necessity Statement*: Pt severely hypoxic unable to maintain sats with activity and not able to be managed elsewhere. Maintain hospitalizlation due to tachycardia not responding to meds and hypoxia not improving Coding Level of Care Code Acute Data Security Coordinator for Chg Fwd Diagnoses Pneumonia due to COVID-19 virus U07.1; J12.82 Hypoxia R09.02 DVT prophylaxis Z29.9 Atrial fibrillation with rapid ventricular response I48.91
[2020-10-05] MEDS: morphine 10 mg/0.5 mL oral liq UD 5 MG PO (20:15)
[2020-10-05] MEDS: enoxaparin 40 mg/0.4 mL Syringe SUBCUT (21:46)
[2020-10-05] MEDS: dexamethasone 4 mg/mL INJ 6 MG IVP (21:46)
[2020-10-05] MEDS: trazodone 50 mg Tablet PO (21:46)
[2020-10-05] MEDS: lanolin oint 7 gm 1 APPLIC TOPICAL (21:47)
--- NOTE | 2020-10-05 23:57 | PC.NURSE ---
Shift report received from [facility]. Patient is A & O, resting in bed watching TV, patient voices no C/O of pain or other needs at this time.
[2020-10-06] VITALS (10 sets, daily range): BP systolic 124–136; BP diastolic 68–79; PULSE 47–78; RESP 16–21; TEMP 36.6–37.5; O2SAT 90–96
[2020-10-06] MEDS: morphine 10 mg/0.5 mL oral liq UD 5 MG PO ×4 (02:20→21:44)
[2020-10-06] MEDS: dilTIAZem ER (24HR) 240 mg Capsule PO (09:10)
[2020-10-06] MEDS: aspirin 81 mg EC Tablet PO (09:10)
[2020-10-06] MEDS: saline nasal spray 44mL Btl 1 SPRAY NASAL (14:03)
--- NOTE | 2020-10-06 16:52 | PM.PN ---
Subjective Subjective: Interval history: spirits remain improved, still smiling. Feels sleepy with roxanol but overall feels good. Vitals/I&O/Wt Last Vital Signs Temp 99.0 F 10/06/20 11:38 Pulse 78 10/06/20 11:38 Resp 18 10/06/20 11:38 BP 136/68 10/06/20 11:38 Pulse Ox 90 10/06/20 11:38 10/06/20 10/06/20 10/06/20 06:59 14:59 22:59 Intake Total 100 / 100 Output Total 300 / 300 Balance -300 / 780 100 / 100 Physical Exam Narrative: EXAM NARRATIVE: alert oriented. NAD when enter room. Calm today. H: REG rate No murmur L: less rhonchi diminished BS; IMPROVED AERATION A: soft NT/ND normoactive BS E: no edema Data : 10/03/20 04:47 10/03/20 04:47 Micro: Microbiology 09/30/20 19:10 Blood Culture - Final Blood NO GROWTH AFTER 5 DAYS A&P Assessment and plan (1) Pneumonia due to COVID-19 virus: Completed remdesivir Continue decadron D8/10 Encouraged to increase activity. cont roxanol air hunger/breathlessness and anxiety recheck inflammatory markers, CXR and procalcintonin to look for other etiology of lack of improvment. Status: Acute (2) Hypoxia: Requiring about 4-8 L of oxygen. Not desating as much today. Status: Acute (3) DVT prophylaxis: lovenox -change to prophylatic Status: Acute (4) Atrial fibrillation with rapid ventricular response: resolved!! Continue Cardizem ER. Status: Resolved Attestations Medical Necessity Statement*: Pt severely hypoxic unable to maintain sats with activity and not able to be managed elsewhere. hypoxia not improving Coding Level of Care Code Acute Rotary Surface Grinder for Chg Fwd Diagnoses Pneumonia due to COVID-19 virus U07.1; J12.82 Hypoxia R09.02 DVT prophylaxis Z29.9 Atrial fibrillation with rapid ventricular response I48.91
[2020-10-06] MEDS: ondansetron 2 mg/ML SDV 2 mL 4 MG IVP (21:45)
[2020-10-06] MEDS: enoxaparin 40 mg/0.4 mL Syringe SUBCUT (21:45)
[2020-10-06] MEDS: dexamethasone 4 mg/mL INJ 6 MG IVP (21:45)
[2020-10-06] MEDS: trazodone 50 mg Tablet PO (21:45)
[2020-10-07] VITALS (8 sets, daily range): BP systolic 114–131; BP diastolic 62–73; PULSE 57–77; RESP 16–24; TEMP 36.7–37.1; O2SAT 83–94
--- NOTE | 2020-10-07 06:34 | XRR_ITS ---
PROCEDURE INFORMATION: Exam: XR Chest Exam date and time: 10/07/2020 6:34 AM Age: 59 years old Clinical indication: Dyspnea; Additional info: Covid, R/O bacterial pneumonia TECHNIQUE: Imaging protocol: XR of the chest. Views: 2 views. COMPARISON: CR (CHEST, ) 09/30/2020 6:02 PM FINDINGS: Lungs: Patchy bilateral predominantly peripheral infiltrates appear mildly worsened when compared to the prior study. Pleural spaces: Unremarkable. No pleural effusion. No pneumothorax. Heart/Mediastinum: Unremarkable. No cardiomegaly. Bones/joints: Unremarkable. XR/XR chest 2V* [id number] IMPRESSION: There are patchy bilateral predominantly peripheral infiltrates consistent with pneumonia.
[2020-10-07 07:14] LABS: D Dimer 0.35 ug/mIFEU (0-0.59)
[2020-10-07 07:26] LABS: Basophils % 0.1 %; Hematocrit 46.4 % (37.0-47.0); Hemoglobin 14.3 g/dL (11.5-15.3); Lymphocytes # 0.8 10^3/uL (0.8-4.8); Lymphocytes % 8.1 %; Mean Corpuscular HGB Conc 30.8 g/dL (30.0-36.0); Mean Corpuscular Volume 90.8 fL (81-99); Mean Platelet Volume 11.8 fL (7.4-10.4); Monocytes # 0.3 10^3/uL (0.2-0.9); Neutrophils # 8.43 10^3/uL (1.8-7.7); Neutrophils % 87.6 %; Nucleated Red Blood Cells % 0 %; Platelet Count 291 10^3/cmm (130-400); Red Blood Count 5.11 10^6/uL (4.1-5.3); Red Cell Distribution Width 12.5 % (12.1-15.1); White Blood Count 9.6 10^3/uL (4.0-10.0)
[2020-10-07 07:39] LABS: Anion Gap 14.3 (5-19); Blood Urea Nitrogen 18 mg/dL (6-20); Calcium 8.5 mg/dL (8.5-10.5); Carbon Dioxide 29 mmol/L (22-29); Chloride 102 mmol/L (98-107); Glomerular Filtration Rate 126.7 mL/min (90-130); Glucose 131 mg/dL (65-115); Osmolality Calculated 296 mOsm/kg (285-295); Potassium 4.3 mmol/L (3.5-5.1); Sodium 141 mmol/L (136-145)
[2020-10-07 07:49] LABS: Procalcitonin 0.03 ng/mL (0-0.5)
[2020-10-07 08:00] LABS: C Reactive Protein 1.9 mg/L (0.0-4.9); Ferritin 360 ng/mL (15-150)
[2020-10-07 08:07] LABS: Lactate Dehydrogenase 474 U/L (135-214)
[2020-10-07 10:04] LABS: Erythrocyte Sedimentation Rate 11 mm/hr (0-15)
[2020-10-07] MEDS: morphine 10 mg/0.5 mL oral liq UD 5 MG PO ×2 (10:35→14:42)
[2020-10-07] MEDS: aspirin 81 mg EC Tablet PO (10:35)
[2020-10-07] MEDS: dilTIAZem ER (24HR) 240 mg Capsule PO (10:35)
--- NOTE | 2020-10-07 16:57 | P.DS_ITS ---
Discharge Providers Date of Admission: 09/30/20 20:44 Date of Discharge: October 07, 2020 Attending Provider at Admission: Mari Queen Attending Provider at Discharge: Salvatore Wahl DO Primary Care Provider: Reji Woody DO Diagnoses at Discharge Discharge Diagnosis (1) Pneumonia due to COVID-19 virus: Status: Resolved (2) Hypoxia: Status: Acute (3) DVT prophylaxis: Status: Resolved (4) Atrial fibrillation with rapid ventricular response: Status: Resolved (5) COVID-19: Status: Acute (6) Atrial fibrillation with rapid ventricular response: Status: Acute Reason for Visit Reason for Visit: COVID+ Hospital Course Hospital Course Patient is a 59-year-old female who presented to the hospital respiratory distress. She had generalized weakness nausea fever chills and palpitations. O2 sats were 87% on room air. Patient was diagnosed with Covid pneumonia. She was started on remdesivir and Decadron. Patient also was found to have A. fib with RVR and was started on a Cardizem drip. Patient was treated with the usual care for Covid and continued on Cardizem drip. After completion of the 5 days of remdesivir patient was still significantly hypoxic. She also remained in atrial fibrillation. Her heart rate was improved and she was switched to oral Cardizem. She actually required a bit more oxygen throughout her stay up to 8 L. Patient was becoming increasingly anxious and I started her on Roxanol low-dose scheduled. This see med to calm her down. Amount of oxygen she also converted to normal sinus rhythm. Her heart rate and blood pressure still tolerated the Cardizem initially. Patient required a few more days of hospitalization supportive care nebs spirometry and she continued to improve. Patient was very anxious to get home. So on 10/07/2020 I discharge the patient on home oxygen with incentive education on care. It should be noted that the patient was immunocompromised on admission. I recommended that she stop her immunosuppressive's until completely resolved of Covid symptoms. Of course she was on prednisone and that will be replaced with Decadron for the remainder of the course. On discharge I stopped Roxanol. She was advised to take her omeprazole that she had at home while on the higher dose steroids. I asked her to remain off steroids again until Covid symptoms resolved. And at discharge I decreased her Cardizem to a moderate dose of 120 mg daily and she can follow-up with her primary care physician. She was taken off anticoagulation as well. Physical Exam Narrative: EXAM NARRATIVE: alert oriented. NAD when enter room. Calm today. H: REG rate No murmur L: less rhonchi diminished BS; IMPROVED AERATION A: soft NT/ND normoactive BS E: no edema Discharge Data Data Completed and Pending: Completed Studies During Hospitalization Category Date Time Status XR chest 1V chong ble [id number] Stat Exams 09/30/20 17:25 Completed XR chest 2V* 7104 6 Routine Exams 10/07/20 06:34 Completed Pending at discharge Category Date Time Status Interleukin 6 (IL -6) Serum Stat Lab 09/30/20 18:15 Received Sputum Culture an d Gram Stain Stat Lab 09/30/20 17:25 Uncollected Urinalysis Routin e Lab 10/06/20 16:36 Uncollected Labs from last 24 hours 10/07/20 10/07/20 10/07/20 05:10 05:10 05:10 WBC RBC Hgb Hct MCV MCH MCHC RDW Plt Count MPV Neut % (Auto) Lymph % (Auto) [place] % (Auto) Eos % (Auto) Baso % (Auto) Neut # (Auto) Lymph # (Auto) [place] # (Auto) Eos # (Auto) Baso # (Auto) Nucleated RBC % (a uto) Nucleated RBCs # ESR 11 D-Dimer 0.35 Sodium Potassium Chloride Carbon Dioxide Anion Gap BUN Creatinine GFR Calculation Glucose Calculated Osmolal ity Calcium Ferritin 360 H Lactate Dehydrogen ase 474 H C-Reactive Protein 1.9 Procalcitonin 0.03 10/07/20 10/07/20 05:10 05:10 WBC 9.6 RBC 5.11 Hgb 14.3 Hct 46.4 MCV 90.8 MCH 28.0 MCHC 30.8 RDW 12.5 Plt Count 291 MPV 11.8 H Neut % (Auto) 87.6 Lymph % (Auto) 8.1 [place] % (Auto) 3.0 Eos % (Auto) 0.0 Baso % (Auto) 0.1 Neut # (Auto) 8.43 H Lymph # (Auto) 0.8 [place] # (Auto) 0.3 Eos # (Auto) 0.0 Baso # (Auto) 0.0 Nucleated RBC % (a uto) 0 Nucleated RBCs # 0.0 ESR D-Dimer Sodium 141 Potassium 4.3 Chloride 102 Carbon Dioxide 29 Anion Gap 14.3 BUN 18 Creatinine 0.5 GFR Calculation 126.7 Glucose 131 H Calculated Osmolal ity 296 H Calcium 8.5 Ferritin Lactate Dehydrogen ase C-Reactive Protein Procalcitonin Vitals: Last Vital Signs Temp 98.1 F 10/07/20 08:00 Pulse 76 10/07/20 08:00 Resp 24 H 10/07/20 08:00 BP 114/71 10/07/20 08:00 Pulse Ox 83 L 10/07/20 15:36 Discharge Plan Discharge Patient Disposition: Home Condition: Stable Prescriptions: New aspirin 81 mg Tablet,Delayed Release (Dr/Ec) 81 mg PO DAILY Qty: 30 RF: 0 diltiazem HCl 120 mg capsule,extended release 24 hr 120 mg PO DAILY Qty: 30 RF: 0 Decadron 6 mg tablet 6 mg PO DAILY Qty: 3 RF: 0 Held prednisone 5 mg Tablet See Rx Instructions .ROUTE .COMPLEX RF: 0 Hold Instructions: Resume on 10/14/20. may resume after completed decadron Plaquenil 200 mg Tablet 200 mg PO BID RF: 0 Hold Instructions: Resume on 10/07/20. HOLD while still requiring oxygen and fighting infection. This mediction makes you immunocompromised for other infections. Discontinued azithromycin 250 mg Tablet See Rx Instructions .ROUTE .COMPLEX RF: 0 Discharge Orders: Discharge Order (Routine); Ordered 10/07/20 Ordered By: Salvatore Wahl Other Ambulatory Orders: DME: Oxygen (Order) Location: None Selected Ordered By: Salvatore Wahl Referrals: [facility] [place] [Outside] Discharge Diet: Advance as tolerated Discharge Activity: Limit activity as instructed and Oxygen as instructed Activity Restrictions/Additional Instructions: Increase activity as you can. Monitor pulse ox when active. TAke frequent breaks Hold plaquenil until you have completely recovered from COVID and no longer on oxygen. Hold prednisone until done with decadron Take omeprazole while on decadron and then 3 more days on empty stomach, eat 1 hour later. f/u PCP 1 week Discharge Attestations Time Spent in Discharge Care*: greater than 30 min Specific Discharge Activities: educating patient, educating and/or supporting family/caregiver, discussing with case packer/social workers/dc planners and evaluating patient/reviewing data Quality Metrics Clinical Quality Measures During this hospital stay, did patient experience: None Coding Level of Care Code Acute Chg FW DC note Diagnoses Pneumonia due to COVID-19 virus U07.1; J12.82 Hypoxia R09.02 DVT prophylaxis Z29.9 Atrial fibrillation with rapid ventricular response I48.91 COVID-19 U07.1 Atrial fibrillation with rapid ventricular response I48.91
--- NOTE | 2020-10-09 14:27 | PC.SOCIAL ---
follow up call made to patient. patient maintaining sats of 90%-92% on 8L of O2. patient reports feeling tired and having to rest. sats drop with activity. monitoring pulse ox and taking frequent breaks. new prescriptions filled yesterday and patient started taking. patient is aware of medications currently on hold, plaquenil and prednisone. aware that azithromycin has been discontinued. follow up appointment with Dr. Woody made for 10-16-20 at 1150, given to patient.
== END 2020-10-07 21:00 | disposition home or self-care (01) | DRG 177 ==
LOC: ER 18:55 → CSU 21:02 → MS 2A 10-04 14:23
PROVIDERS: Family Medicine; Internal Medicine; Nurse Practitioner Family; Admitting Provider Hospitalist; Emergency Provider Family Medicine; PCP Electrodiagnostic Medicine; Visit Provider Internal Medicine
DX: U07.1 COVID-19 (principal); J12.82 Pneumonia due to coronavirus disease 2019; I48.91 Unspecified atrial fibrillation; R09.02 Hypoxemia
CPT/HCPCS: 36415; 36600; 71045; 71046; 80048; 80053; 82728; 82803; 83520; 83605; 83615; 83735; 84145; 84443; 85025; 85378; 85651; 86140; 87040; 87205; 87426; 87635; 93005; 94664; 96365; 96372; 96375; 99285; J1100; J1160; J1650; J2405; J3490; J7030

== ENCOUNTER 2020-10-17 10:48 | Outpatient (CLI) | payer BC, SELFPAY ==
--- NOTE | 2020-10-17 10:56 | USCV_ITS ---
Zoie Arnold Age: 59 Gender: F : 1960 Exam Date: 10/17/2020 11:10 Ordering Phys: Reji Woody DO Technologist: Kayleen Flores [place] [facility] [place]ication: RLE PAIN HISTORY: Lower extremity pain. PROCEDURES: Venous duplex imaging was performed in only the right lower extremity. The following venous structures were evaluated: common femoral vein, profunda vein, proximal portion of the greater saphenous vein, superficial femoral vein, and the popliteal vein. In addition, the posterior tibial and peroneal trunk were evaluated. Serial compression, augmentation maneuvers, and spectral Doppler flow evaluation were performed. FINDINGS: Non compressible Medial Gastroc vein in mid calf seen All other veins appear patent CONCLUSIONS Occlusive DVT medial gastrocnemius RLE Mid calf Remainder RLE veins are patent Khadar Hill MD (Electronically Signed) Final Date: 17 October 2020 14:36 S
== END 2020-10-17 10:49 | disposition home or self-care (01) ==
LOC: RAD 10:52
PROVIDERS: PCP Electrodiagnostic Medicine; Visit Provider Electrodiagnostic Medicine
DX: I48.91 Unspecified atrial fibrillation (principal); M79.661 Pain in right lower leg; I82.4Z2 Acute embolism and thrombosis of unspecified deep veins of left distal lower extremity
CPT/HCPCS: 93971

== ENCOUNTER 2021-01-11 12:34 | Outpatient (CLI) | payer BC, SELFPAY ==
--- NOTE | 2021-01-11 12:40 | USCV_ITS ---
Zoie Arnold Age: 60 Gender: F : 1960 Exam Date: 01/11/2021 12:53 Ordering Phys: Reji Woody (ER USE) Technologist: Kayleen Flores Exam Location: [facility] [place] Indication: H/O RIGHT GASTROC DVT HISTORY: DVT. PROCEDURES: Venous duplex imaging was performed in only the right lower extremity. The following venous structures were evaluated: common femoral vein, profunda vein, proximal portion of the greater saphenous vein, superficial femoral vein, and the popliteal vein. In addition, the posterior tibial and peroneal trunk were evaluated. Serial compression, augmentation maneuvers, and spectral Doppler flow evaluation were performed. FINDINGS: No evidence of DVT seen in any vessel visualized at this time. CONCLUSIONS No evidence of right lower extremity DVT. Khadar Hill MD (Electronically Signed) Final Date: 11 January 2021 13:32 S
== END 2021-01-11 12:35 | disposition home or self-care (01) ==
LOC: RAD 12:36
PROVIDERS: PCP Electrodiagnostic Medicine; Visit Provider Electrodiagnostic Medicine
DX: I83.90 Asymptomatic varicose veins of unspecified lower extremity (principal); I82.5Z1 Chronic embolism and thrombosis of unspecified deep veins of right distal lower extremity
CPT/HCPCS: 93971

== ENCOUNTER 2021-01-15 12:37 | Outpatient (CLI) | payer BC, SELFPAY ==
--- NOTE | 2021-01-15 12:43 | XRR_ITS ---
PROCEDURE INFORMATION: Exam: XR Right Knee Exam date and time: 01/15/2021 12:43 PM Age: 60 years old Clinical indication: Right; Patient HX: History--rt knee pain for 1 week; PT states when she sits for a long time and then stands up the pain is worse; PT also says bending causes pain from knee to RT hip; Additional info: Chronic R knee pain TECHNIQUE: Imaging protocol: XR Right knee. Views: 3 views. COMPARISON: No relevant prior studies available. FINDINGS: Bones/joints: Normal. Soft tissues: Normal. XR/XR knee RT 3V* [id number] IMPRESSION: No acute findings. Radiation Dose CTDIVOL = (mGy): DLP = (mGy-cm)
== END 2021-01-15 12:38 | disposition home or self-care (01) ==
LOC: RAD 12:41
PROVIDERS: PCP Electrodiagnostic Medicine; Visit Provider Electrodiagnostic Medicine
DX: M25.561 Pain in right knee (principal); L65.9 Nonscarring hair loss, unspecified; I82.5Z1 Chronic embolism and thrombosis of unspecified deep veins of right distal lower extremity; U07.1 COVID-19
CPT/HCPCS: 73562

== ENCOUNTER 2021-08-31 11:26 | Outpatient (CLI) | payer BC, SELFPAY ==
--- NOTE | 2021-08-31 11:40 | MM_ITS ---
WS: [id number] BILATERAL SCREENING DIGITAL BREAST TOMOSYNTHESIS MAMMOGRAM WITH CAD HISTORY: SCREENING COMPARISON: 08/11/2020 and 04/30/2019 Bilateral CC and MLO views with tomosynthesis and synthetic mammography submitted. Computer aided det ection analyzed. Breast composition: The breasts are heterogeneously dense, which may obscure small masses. No suspici ous masses, microcalcifications or architectural distortion. MM/[place] [id number] IMPRESSION: BI-RADS: 1-Negative FOLLOW UP: 1 Year Follow-up
== END 2021-08-31 11:27 | disposition home or self-care (01) ==
LOC: RAD 11:27
PROVIDERS: PCP Electrodiagnostic Medicine; Visit Provider Electrodiagnostic Medicine
DX: Z12.31 Encounter for screening mammogram for malignant neoplasm of breast (principal)
CPT/HCPCS: 77063; 77067

== ENCOUNTER 2021-11-11 16:16 | Emergency (ER) | payer BC, SELFPAY ==
--- NOTE | 2021-11-11 17:16 | USR_ITS ---
PROCEDURE INFORMATION: Exam: US Duplex Right Lower Extremity Veins, Limited Exam date and time: 11/11/2021 6:17 PM Age: 61 years old Clinical indication: Pain; Leg, lower; Right; Additional info: Blood clot TECHNIQUE: Imaging protocol: Real-time Duplex ultrasound of the Right Lower Extremity with 2-D paulson scale, color Doppler flow and spectral waveform analysis with image documentation. Limited exam was focused on the right lower extremity veins. COMPARISON: CR XR knee RT 3V* [id number] 01/15/2021 12:50 PM FINDINGS: Right deep veins: Unremarkable. The common femoral, femoral, proximal profunda femoral, popliteal, posterior tibial and peroneal veins are patent without thrombus. Normal Doppler waveforms. Normal compressibility and/or augmentation response. Right superficial veins: Unremarkable. Saphenofemoral junction is patent without thrombus. Soft tissues: Unremarkable. US/[place] [id number] IMPRESSION: No sonographic evidence of deep vein thrombosis.
[2021-11-11 17:18] VITALS: BP 151/72; PULSE 63; RESP 14; TEMP 36.8; O2SAT 98; BMI 27.3
--- NOTE | 2021-11-11 21:06 | W.ED.GENADLT ---
HPI - General Adult General: Chief complaint: General Medical Stated complaint: Right lower leg pain Time Seen by Provider: 11/11/21 17:49 History of Present Illness: 61-year-old female patient presents to the emergency department with right calf pain and swelling. Patient states this is been going on for the last 4 to 5 days. Patient states she does have history of blood clot in the leg. Patient states she was sent over from primary care physician office for a ultrasound. Patient denies any chest pain or shortness of breath. Patient denies any fever. Patient is not on anticoagulants. Associated symptoms: Deny chest pain, confusion, diaphoresis, dyspnea, headache(s), malaise, nausea, rash, palpitations, syncope or vomiting Review of Systems Const: Denies: fever(s), chills, body aches, change in appetite, change in weight, fatigue, malaise or diaphoresis Eyes: Denies: change in vision, blurry vision, blind spots, photophobia, eye discomfort, eye discharge, eye redness, floaters or seeing flashes ENMT: Denies: throat pain, uvular edema, enlarged tonsils, odynophagia, hoarseness, mouth pain, swelling of lips/tongue, oral sores, bleeding gums, dental pain, dry mouth, ear or mastoid pain, ear discharge, change in hearing, tinnitus, disequilibrium, nasal discharge, nasal congestion, post nasal drip or sinus pain Card: Denies: chest pain, palpitations, irregular heart rhythm, edema, swelling of feet/ankles, lightheadedness, syncope, pre-syncope, dyspnea on exertion, orthopnea, leg pain with exertion or acrocyanosis Resp: Denies: dyspnea, productive cough, non-productive cough, wheezing, stridor, pain on inspiration, change in phlegm color, hemoptysis or chest congestion GI: Denies: abdominal pain, nausea, vomiting, hematemesis, dysphagia, diarrhea, constipation, GI cramping, change in bowel habits or rectal pain : Denies: flank pain, difficulty voiding, dysuria, urinary frequency, urinary urgency, urinary hesitancy or hematuria Musc: Reports: extremity pain and extremity swelling; Denies: neck pain, back pain, joint pain, joint swelling, joint redness, joint warmth or deformity Skin/Breast: Denies: rash, pruritus, erythema, sores, new lesions, changes in skin color or dry skin Neuro: Denies: headache(s), numbness in extremities, weakness in extremities, sensory changes, lack of coordination, difficulty walking, frequent falls, dizziness, vertigo, confusion, behavioral changes, Slurred speech present, difficulty communicating thoughts or seizure-like activity Psych: Denies: anxiety, depression, suicidal ideation or homicidal ideation Endo: Denies: polyuria, polydipsia, tired all the time, cold intolerance, excessive sweating, flushing, hot flashes or heat intolerance Woody/Lymph: Denies: easy bruising, easy bleeding, petechiae, purpura, enlarged lymph nodes or tender lymph nodes All/Imm: Denies: urticaria, throat swelling, tongue swelling, facial swelling, acute wheezing or itchy eyes Physical Exam Const: COMMON NORMALS: no acute distress, average body habitus, patient oriented x3, no limitations, healthy appearing, alert and well nourished HENMT: THROAT: no uvular edema Chest: COMMONS NORMALS: normal inspection of the chest and normal palpation of entire chest wall Resp: COMMON NORMALS: normal respiratory effort, No retractions and No use of accessory muscles Cardio: COMMON NORMALS: regular rate and regular rhythm RATE: regular rate RHYTHM: regular rhythm Extremity: OTHER: Patient complains of tenderness to the right calf area there is minimal swelling noted to the right calf. Patient does have a positive Homans' sign patient is neurovascularly intact distally Neuro: COMMON NORMALS: patient oriented x3 SENSORIUM/ORIENTATION: Yes alert Course Vital Signs: Vital signs: Vital Signs Temperature 98.3 F 11/11/21 17:18 Pulse Rate 63 11/11/21 17:18 Respiratory Rate 14 11/11/21 17:18 Blood Pressure 151/72 11/11/21 17:18 Pulse Oximetry 98 11/11/21 17:18 Oxygen Delivery Me thod 11/11/21 17:18 MDM - General Adult Medical Decision Making Patient is well-appearing nontoxic and in no acute distress.61-year-old female patient presents to the emergency department with right calf pain and swelling. Patient states this is been going on for the last 4 to 5 days. Patient states she does have history of blood clot in the leg. Patient states she was sent over from primary care physician office for a ultrasound. Patient denies any chest pain or shortness of breath. Patient denies any fever. Patient is not on anticoagulants. Patient's ultrasound is negative for DVT. Patient is neurovascularly intact distally. There is no evidence of infection or cellulitis. Patient is noted to have multiple pronounced varicose veins on the right lower extremity. I advised patient to wear compression stockings use more moist heat and elevate extremity I discussed with patient return precautions as well as home care and follow-up. Lab Data Radiology Impressions Venous Duplex 11/11/21 17:16 IMPRESSION: No sonographic evidence of deep vein thrombosis. Discharge Plan Discharge Condition: Stable Prescriptions: No Action prednisone 5 mg Tablet See Rx Instructions .ROUTE .COMPLEX Hold Instructions: Resume on 10/14/20. may resume after completed decadron Rx Instructions: TAKE DIRECTED SEE PHARMACY COMMENT Plaquenil 200 mg Tablet 200 mg PO BID Hold Instructions: Resume on 10/07/20. HOLD while still requiring oxygen and fighting infection. This mediction makes you immunocompromised for other infections. aspirin 81 mg Tablet,Delayed Release (Dr/Ec) 81 mg PO DAILY Qty: 30 0RF diltiazem HCl 120 mg capsule,extended release 24 hr 120 mg PO DAILY Qty: 30 0RF Decadron 6 mg tablet 6 mg PO DAILY Qty: 3 0RF Referrals: Reji Woody DO [Primary Care Provider] - Coding Level of Care Code ED Nursing Assistants Teacher for Michele Mathis
[2021-11-11 21:19] VITALS: BP 122/69; PULSE 61; RESP 16; O2SAT 99
== END 2021-11-11 21:21 | disposition home or self-care (01) ==
PROVIDERS: Emergency Provider Registered Nurse; PCP Electrodiagnostic Medicine
DX: M79.604 Pain in right leg (principal); Z79.82 Long term (current) use of aspirin
CPT/HCPCS: 93971; 99283

== ENCOUNTER 2022-08-15 12:14 | Outpatient (CLI) | payer BC, SELFPAY ==
--- NOTE | 2022-08-15 12:31 | CT_ITS ---
WS: [id number] CT ABDOMEN PELVIS TECHNIQUE: Contrast-enhanced CT of the abdomen and pelvis with coronal and sagittal reformatted image s. CLINICAL INFORMATION: CHRONIC DIARRHEA COMPARISON: None. DLP: 562.[address] scans at [facility] use at least one of these dose optimization techniques: automated e xposure control; mA and/or kV adjustment per patient size (includes targeted exams where dose is matc hed to clinical indication); or iterative reconstruction. FINDINGS: Diffuse fatty infiltration of the liver. Normal portal vein and splenic vein. Normal GE junction. Lachelle g bases are well aerated. Normal spleen. Normal pancreatic parenchymal enhancement. Adrenal glands ar e normal. Normal renal parenchymal enhancement. No hydronephrosis. A few tiny renal cysts. Some too s mall to characterize. Normal caliber abdominal aorta. Celiac and SMA are patent. Small enhancing lesion LEFT uterus myometr ium measuring 12 mm may represent a small fibroid. This can be further evaluated with ultrasound. Mild constipation involving transverse colon and RIGHT colon. Normal sigmoid colon. A few diverticuli . No evidence of acute diverticulitis. Mild fecal retention in the transverse colon. No evidence of h igh-grade small or large bowel obstruction. No free fluid in the abdomen or pelvis. Tiny fat-containi ng umbilical hernia. CT/CT abdomen pelvis w con* [id number] IMPRESSION: 1. Mild diffuse fatty infiltration of the liver. 2. Small esophageal hiatal hernia. 3. No hydronephrosis in either kidney. A few tiny renal cysts. 4. Tiny fat-containing umbilical hernia. 5. Mild fecal retention RIGHT colon and transverse colon. 6. A few sigmoid diverticuli. No evidence of acute diverticulitis. 7. Small enhancing lesion LEFT uterus myometrium measuring 12 mm may represent a small fibroid. This can be further evaluated with ultrasound
[2022-08-15] MEDS: iohexol 350 mg/mL 500 mL Btl (per mL) PO (12:34)
[2022-08-15] MEDS: iohexol 350 mg/mL 500 mL Btl (per mL) IV (12:34)
== END 2022-08-15 12:15 | disposition home or self-care (01) ==
LOC: RAD 12:23
PROVIDERS: PCP Electrodiagnostic Medicine; Visit Provider Electrodiagnostic Medicine
DX: K52.9 Noninfective gastroenteritis and colitis, unspecified (principal); K56.609 Unspecified intestinal obstruction, unspecified as to partial versus complete obstruction; K76.0 Fatty (change of) liver, not elsewhere classified; K44.9 Diaphragmatic hernia without obstruction or gangrene; K59.00 Constipation, unspecified; K57.92 Diverticulitis of intestine, part unspecified, without perforation or abscess without bleeding; N85.9 Noninflammatory disorder of uterus, unspecified; Q61.02 Congenital multiple renal cysts
CPT/HCPCS: 74177; Q9967

== ENCOUNTER 2022-10-14 07:30 | Outpatient (CLI) | payer BC, SELFPAY ==
--- NOTE | 2022-10-14 07:41 | MM_ITS ---
WS: [id number] BILATERAL SCREENING DIGITAL TOMOSYNTHESIS MAMMOGRAM WITH CAD HISTORY: SCREENING COMPARISON: 08/31/2021, 2020 Bilateral CC and MLO views with tomosynthesis and synthetic mammography submitted. Computer aided det ection analyzed. Breast composition: There are scattered areas of fibroglandular density. No suspicious masses, microc alcifications or architectural distortion. MM/[place] [id number] IMPRESSION: BI-RADS: 1-Negative FOLLOW UP: 1 Year Follow-up
== END 2022-10-14 07:31 | disposition home or self-care (01) ==
LOC: RAD 07:32
PROVIDERS: PCP Electrodiagnostic Medicine; Visit Provider Electrodiagnostic Medicine
DX: Z12.31 Encounter for screening mammogram for malignant neoplasm of breast (principal)
CPT/HCPCS: 77063; 77067

== ENCOUNTER 2024-04-19 08:09 | Outpatient (CLI) | payer OTHER, SELFPAY ==
--- NOTE | 2024-04-19 08:11 | MM_ITS ---
WS: [id number] SCREENING DIGITAL BREAST TOMOSYNTHESIS MAMMOGRAM WITH CAD HISTORY: SCREENING COMPARISON: 10/14/2022, 08/31/2021, 08/11/2020 Bilateral CC and MLO with tomosynthesis and synthetic mammography submitted. Computer aided detection analyzed. Breast composition: The breasts are heterogeneously dense, which may obscure small masses. Irregular high density mass with indistinct margins in the medial LEFT breast near 9:00 at a middle depth is identified. Mass measures 7 x 5 x 10 mm. This mass is new since the prior study. No additional abnormalities are identified within either breast. MM/MM [facility] tomosynthesis [id number] IMPRESSION: BI-RADS: 0 - Incomplete: Need additional imaging evaluation FOLLOW UP: Need Additional Imaging LEFT breast: Spot compression views (CC and MLO). True ML. Ultrasound to follow if abnormality persists.
== END 2024-04-19 08:10 | disposition home or self-care (01) ==
PROVIDERS: PCP Electrodiagnostic Medicine; Visit Provider Electrodiagnostic Medicine
DX: Z12.31 Encounter for screening mammogram for malignant neoplasm of breast (principal); R92.333 Mammographic heterogeneous density, bilateral breasts; N63.25 Unspecified lump in the left breast, overlapping quadrants
CPT/HCPCS: 77063; 77067

== ENCOUNTER 2024-05-10 08:43 | Outpatient (CLI) | payer OTHER, SELFPAY ==
--- NOTE | 2024-05-10 08:53 | MM_ITS ---
WS: [id number] ADDITIONAL VIEWS LEFT MAMMOGRAM WITH DIGITAL BREAST TOMOSYNTHESIS. HISTORY: ABNORMAL MAMMO COMPARISON: 04/19/2024, 10/14/2022, 08/31/2021 and 08/11/2020 Spot compression views LEFT breast in CC, MLO projections and true ML submitted with digital breast tomosynthesis and SM. Breast composition: The breasts are heterogeneously dense, which may obscure small masses. Asymmetry described on recent mammogram in the medial LEFT breast resolves with additional imaging. The fibroglandular pattern is similar to multiple prior examinations after spot compression views. No distortion. No mass. MM/MM diag LT tomosynthesis [id number] IMPRESSION: BI-RADS: 2 - Benign FOLLOW UP: 1 Year Follow-up Return to annual screening mammography.
== END 2024-05-10 08:44 | disposition home or self-care (01) ==
PROVIDERS: PCP Electrodiagnostic Medicine; Visit Provider Electrodiagnostic Medicine
DX: N63.0 Unspecified lump in unspecified breast (principal); R92.332 Mammographic heterogeneous density, left breast
CPT/HCPCS: 77061; G0279